=== PATIENT | male | born 1970 | race Caucasian/White ===

== ENCOUNTER → 2016-06-29 | Outpatient (CLI) | payer OTHER ==
[~2016-06-29] MED LIST: IBUP600T44 PO
== END | disposition home or self-care (01) ==
LOC: C.LAB 18:42
DX: Z02.83 Encounter for blood-alcohol and blood-drug test (principal)

== ENCOUNTER → 2017-12-13 | Outpatient (CLI) | payer OTHER ==
--- NOTE | 2017-12-13 16:05 | DIAGNOSTIC IMAGING REPORT ---
RIGHT SHOULDER 3 VIEWS HISTORY: RT SHOULDER PAIN COMPARISON: None. FINDINGS: There is no fracture or dislocation. Soft tissues are unremarkable. The right clavicle is intact. Mild AC joint arthrosis. Mild to moderate degenerative changes at the glenohumeral joint. There is a metallic staple within the right humeral head consistent with postoperative change. IMPRESSION: 1. No acute fracture or dislocation within the right shoulder. 2. Degenerative changes as described above. Electronically signed by: London Nuñez M.D. 12/13/2017 4:04 PM Dictated Date/Time: 12/13/2017 4:02 PM
== END | disposition home or self-care (01) ==
LOC: C.RAD1850 15:45
PROVIDERS: ATTEND Nurse Practitioner Family
DX: M25.511 Pain in right shoulder (principal); M19.011 Primary osteoarthritis, right shoulder

== ENCOUNTER → 2017-12-22 | Outpatient (CLI) | payer OTHER ==
--- NOTE | 2017-12-22 11:02 | DIAGNOSTIC IMAGING REPORT ---
R UPPER EXT JOINT WITHOUT CLINICAL HISTORY: 47 years-old Male presenting with M25.511 Pain in joint of right shoulder, recent dislocation, injury at work, right shoulder pain with limited range of motion, history of surgery 20 years ago. TECHNIQUE: Multisequence, multiplanar MR imaging of the right shoulder was performed without the use of intravenous contrast. IV contrast: None. COMPARISON: Plain radiographs from 12/13/2017. FINDINGS: Motion artifact results in degradation of image quality limiting diagnostic sensitivity the exam. Localizer images: Unremarkable. Bone marrow: Failure of fat suppression regionally in the anterior humeral head at the site of orthopedic hardware. Remainder of bone marrow signal intensity demonstrates mild edema at the footplate of the insertional fibers of the infraspinatus and supraspinatus. This may indicate chronic impingement. Mild bony edema associated with the acromioclavicular joint. Articular cartilage: Mild cartilage irregularity of the anterior inferior humeral head. Osteophytosis noted at the inferior humeral head. Less pronounced articular cartilage thinning and irregularity of the apposing glenoid inferiorly. Labrum: Ill-defined biceps labral complex likely indicates prior tear and surgical change. Diffuse increase in signal intensity of the superior labrum and inferior labrum likely chronic degeneration. No focal tear. Biceps and triceps tendons: Patent fixation of the long head of the biceps tendon may be present though the bicipital groove is poorly evaluated given significant susceptibility artifact arising from orthopedic hardware at the lesser tubercle. Short head of the biceps tendon intact. Long head of the triceps tendon intact. Rotator cuff: Pinhole full-thickness tear of the critical zone-myotendinous fibers of the junctional fibers of the supraspinatus and infraspinatus. (series 5 image 12). Increased signal intensity of the critical zone of the infraspinatus indicative of tendinosis. Teres minor tendon intact. Subscapularis tendon poorly evaluated given regional susceptibility artifact though likely intact. Acromioclavicular joint: Hypertrophic degenerative changes of the acromioclavicular joint. Flat undersurface of the acromion. Shoulder joint effusion: Trace shoulder joint effusion. Fluid in the rotator cuff interval may relate to prior surgical intervention or the presence of the pin hole rotator cuff tear. Trace fluid in the subacromial-subdeltoid bursa. Muscle: Normal muscle bulk and muscle signal intensity. Superficial soft tissue: No subcutaneous edema. IMPRESSION: 1. Postsurgical changes at the lesser tubercle results in regional susceptibility artifact. This combined with motion related artifact results in degradation of image quality limiting diagnostic sensitivity the exam. 2. Suspected postsurgical changes of the long head of the biceps tendon. 3. Advanced degenerative changes of the glenohumeral joint most pronounced inferiorly. 4. Suspected pinhole full-thickness tear of the junctional fibers of the supraspinatus and infraspinatus. 5. Tendinosis of the infraspinatus. 6. Degenerative changes of the acromioclavicular joint. Electronically signed by: Adrián Hernandez M.D. 12/22/2017 11:01 AM Dictated Date/Time: 12/22/2017 10:49 AM
== END | disposition home or self-care (01) ==
LOC: C.MRI 09:31
PROVIDERS: ATTEND Nurse Practitioner Family
DX: M25.511 Pain in right shoulder (principal); M75.91 Shoulder lesion, unspecified, right shoulder